=== PATIENT | female | born 1990 | race Caucasian/White ===

== ENCOUNTER 2017-04-01 07:48 | Emergency (ER) | payer MEDICAID ==
[~2017-04-01] VITALS: Ht 170.2 cm; Wt 57.5 kg
[2017-04-01 08:03] VITALS: Ht 170.2 cm; Wt 57.5 kg
--- NOTE | 2017-04-01 09:38 | RADRPT ---
PROCEDURE: XR Hip 2 Views. CLINICAL INDICATION: Left hip pain. TECHNIQUE: AP and frog lateral views of the left hip were performed. COMPARISON: None. FINDINGS: The osseous structures are intact. No destructive bony lesions are observed. Interosseous spaces a ppear normal. The soft tissues surrounding the hip are unremarkable. IMPRESSION: Unremarkable left hip. If further characterization is needed CT or MRI could be helpful. If there is high clinical suspicion for traumatic injury, further evaluation with CT should be consi dered. RPTAT: AA .Yoel Ashley MD, Date Time Electronically viewed and signed by .Yoel Ashley MD, on 04/01/2017 09:38 .P/
[2017-04-01] MEDS ORDERED: CYCL-319 PO (09:43)
[2017-04-01] MEDS ORDERED: TRAM50TA2 PO (09:43)
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
== END 2017-04-01 09:52 | disposition home or self-care (01) ==
LOC: FTE 07:48
DX: M25.552 Pain in left hip (principal); E03.9 Hypothyroidism, unspecified; J45.909 Unspecified asthma, uncomplicated; M25.532 Pain in left wrist; R51 Headache; Z91.040 Latex allergy status
CPT/HCPCS: 73510; Z7502